=== PATIENT | female | born 1990 | race African-American/Black ===

== ENCOUNTER 2021-05-01 10:40 | Emergency (ER) | payer OTHER ==
[~2021-05-01] VITALS: Ht 157.5 cm; Wt 72.0 kg
[2021-05-01] MEDS ORDERED: ONDANSETRON HCL 4MG/2ML INJ IM STA (10:47)
[2021-05-01 10:58] LABS: CLARITY URINE CLEAR (CLEAR); COLOR URINE YELLOW (YELLOW); KETONES URINE NEGATIVE (NEGATIVE); LEUKOCYTE ESTERASE URINE TRACE (NEGATIVE); NITRITE URINE NEGATIVE (NEGATIVE); OCCULT BLOOD URINE NEGATIVE (NEGATIVE); PROTEIN URINE NEGATIVE (NEGATIVE); SPECIFIC GRAVITY URINE 1.016 (1.005-1.030); UROBILINOGEN URINE 0.2 E.U./dL (0.2-1.0)
[2021-05-01] MEDS ORDERED: MAGNESIUM/ALUMINUM HYDROXIDE/SIMETHICONE 30ML UDC PO STA (11:15)
[2021-05-01] MEDS ORDERED: SODIUM CHLORIDE 0.9% 1,000 ML IV ONE (11:30)
[2021-05-01 12:05] LABS: CHLORIDE 105 mEq/L (98-107)
[2021-05-01 12:10] LABS: ETHANOL BLOOD < 10 mg/dL
[2021-05-01 12:12] LABS: HEMATOCRIT. 30.4 % (36.0-48.0); HEMOGLOBIN. 8.9 g/dL (12.0-16.0); MEAN CORPUSCULAR HEMOGLOBIN 18.6 pg (28.0-32.0); MEAN CORPUSCULAR VOLUME 63.3 fL (81.0-99.0); MEAN PLATELET VOLUME 9.9 fl (7.4-10.4); PLATELET 417 x1000/uL (130-400); RED CELL DISTRIBUTION WIDTH 21.9 % (11.6-14.6)
[2021-05-01 12:40] LABS: PLATELET ESTIMATE SLIGHTLY INCREASED
[2021-05-01] MEDS ORDERED: ONDA4TAB5 MT (14:44)
[2021-05-01 15:00] VITALS: BP 137/61
== END 2021-05-01 15:17 | disposition home or self-care (01) ==
LOC: ER 10:40
DX: O26.891 Other specified pregnancy related conditions, first trimester (principal); Z3A.01 Less than 8 weeks gestation of pregnancy; Z98.890 Other specified postprocedural states
CPT/HCPCS: 36415; 76801; 76817; 80053; 80320; 81003; 81025; 83690; 84702; 85025; 86850; 86900; 86901; 87086; 96360; 96361; 96372; 99284; J2405; J7030; Z7610; G0480

== ENCOUNTER 2021-05-02 16:52 | Emergency (ER) | payer OTHER ==
[~2021-05-02] VITALS: Ht 157.5 cm; Wt 77.0 kg
[~2021-05-02 16:52] MED LIST: ONDA4TAB5 MT
[2021-05-02 17:00] VITALS: BP 124/56
== END 2021-05-02 21:12 | disposition left against medical advice (07) ==
LOC: ER 16:52
DX: R07.9 Chest pain, unspecified (principal); R51.9 Headache, unspecified; Z53.21 Procedure and treatment not carried out due to patient leaving prior to being seen by health care provider
CPT/HCPCS: 93005